=== PATIENT | male | born 1950 | race Caucasian/White ===

== ENCOUNTER 2016-06-29 01:38 | Observation (INO) | payer OTHER ==
[~2016-06-29] VITALS: Ht 185.4 cm; Wt 91.6 kg
[2016-06-29] VITALS (7 sets, daily range): BP systolic 133–142; BP diastolic 50–71
--- NOTE | 2016-06-29 01:38 | NUR ---
PT NICKO BLS. TAKEN TO BED 3
--- NOTE | 2016-06-29 01:38 | NUR ---
BIBA C/O S/P FALL POSSIBLE SYNCOPE BUT NO LOC, CONTUSION ON HIS LEFT FRONTAL HEAD, WITH RASHES ON HID HEAD FOR A MONTH , PATIENT ALERT AWAKE ORIENTED
--- NOTE | 2016-06-29 01:57 | NUR ---
Dr. Main evaluating patient at bedside.
--- NOTE | 2016-06-29 02:13 | NUR ---
PT TAKEN TO CT
--- NOTE | 2016-06-29 02:28 | NUR ---
PT RETURN FROM CT
[2016-06-29 02:41] LABS: BASOPHILS # (AUTO) 0.1 K/uL (0.00-0.22); BASOPHILS % (AUTO) 1.1 % (0.0-2.0); EOSINOPHILS # (AUTO) 0.2 K/uL (0-0.4); EOSINOPHILS % (AUTO) 1.5 % (0.0-4.0); HEMATOCRIT 33.3 % (36-52); HEMOGLOBIN 10.9 g/dL (12.0-18.0); LYMPHOCYTES # (AUTO) 1.3 K/uL (2.0-11.5); MEAN CORPUSCULAR HEMOGLOBIN 32 pg (27-31); MEAN CORPUSCULAR HGB CONC 33 g/dL (33-37); MEAN CORPUSCULAR VOLUME 97 fL (80-94); MONOCYTES # (AUTO) 1.6 K/uL (0.8-1.0); MONOCYTES % (AUTO) 13.1 % (1.7-9.3); NEUTROPHILS % (AUTO) 73.3 % (42.2-75.2); PLATELET COUNT (AUTO) 191 K/uL (140-450); RED BLOOD CELL COUNT(AUTO) 3.42 MIL/uL (4.20-6.10); RED CELL DISTRIBUTION WIDTH 12.5 % (11.6-13.7)
[2016-06-29 02:44] LABS: WHITE BLOOD COUNT (AUTO) 12.2 K/uL (4.8-10.8)
[2016-06-29 02:56] LABS: INR 1.2 (0.8-1.2); PARTIAL THROMBOPLASTIN TIME 28.5 secs (22-35.6); POTASSIUM 3.7 mmol/L (3.5-5.1); PROTHROMBIN TIME 11.9 secs (10.8-13.4)
[2016-06-29 02:57] LABS: ANION GAP 12.7 (8-16); CALCIUM 8.5 mg/dL (8.5-10.1); CREATININE 1.1 mg/dL (0.6-1.3)
[2016-06-29 03:00] LABS: ALBUMIN 3.4 g/dL (3.4-5.0); TOTAL BILIRUBIN 0.8 mg/dL (0.0-1.0); TOTAL PROTEIN, SERUM 7.3 g/dL (6.4-8.2)
[2016-06-29] MEDS ORDERED: ASPIRIN 81 MG TAB.CHEW PO ONE (03:20)
[2016-06-29] MEDS ORDERED: METOPROLOL 25 MG TAB PO ONE (03:20)
--- NOTE | 2016-06-29 04:30 | NUR ---
Patient will be admitted to care of DR KIDD. Admited to ICU 3 . Will go to room ICU 3. Belongings list completed. Report to IHSAN REES.
--- NOTE | 2016-06-29 04:45 | NUR ---
RECEIVED PT FROM ER VIA GURNEY ACCOMPANIED BY EMT AND RN. PT ABLE TO AMBULATE TO BED. INITIAL ASSESSMENT COMPLETED. PT IS ALERT, AWAKE, ORIENTED X4. PT ATTACHED TO MAITRE D', PULSE OXIMETER. ABRASIONS NOTED ON THE NOSE BRIDEGE AND OUTER CANTUS OF LEFT EYE, CHEEK BONE, BRUISE ON THE FOREHEAD. PT HAS CHRONIC RASH ON THE HEAD. IV ACCESS 22G LEFT HAND SALINE LOCK , PATENT, INTACT AT THIS TIME. BED IN LOW POSITION, SAFETY MEASURE ENSURE. PT'S SISTER AT BEDSIDE SAID SHE WILL COME BACK TO GET THE HOME MEDS. WILL CONTINUE TO MONITOR
[2016-06-29] MEDS ORDERED: HYDROcodone/APAP 5/325 MG 1 TAB TAB PO PRN (05:30)
[2016-06-29] MEDS ORDERED: ACETAMINOPHEN 325 MG TAB PO PRN (05:30)
--- NOTE | 2016-06-29 06:30 | NUR ---
REPORT GIVEN TO NEGRITA TREVIZO FOR CONTINUITY OF CARE. VSS UPON TRANSFER, NO SIGNS OF DISTRESS, NO SOB NOTED.
--- NOTE | 2016-06-29 06:46 | NUR ---
RECEIVED PT FROM ICU.PLACED ON BED.ORIENTED TO ROOM.CALL SYSTEM EXPLAINED AND IN REACH.TELE.APPLIED AND SHOWING SR.PT IS AWAKE,ALERT AND ORIENTED.RESP.UNLABORED IN RA.VS STABLE T=98.2,RR=20,TX=70,UY=380/65,O2 SAT IN RA=98%.HAS BRUISES ON FACE AND FORE HEAD AND ABRASION ON NOSE D/T FALL.PT HAS F/C AT HOME AND CHANGED IN ER.NO C/O PAIN AT THIS TIME.
--- NOTE | 2016-06-29 07:22 | NUR ---
RECEIVED REPORT FROM NEGRITA TREVIZO. PT IS AAOX4. PT IS ON ROOM AIR. DENIES PAIN AT THIS TIME. IV TO LEFT HAND #22 PATENT AND INTACT. BRUISES NOTED TO FACE WITH ABRASION TO NOSE. SKIN IS OTHERWISE INTACT. CHRISTY CATHETER IN PLACE DRAINING TO GRAVITY DRAINAGE BAG. SAFETY PRECAUTIONS IN PLACE WITH BED IN LOW POSITION AND SIDE RAILS UP X2. CALL LIGHT WITHIN REACH. WILL CONTINUE TO MONITOR.
--- NOTE | 2016-06-29 07:23 | NUR ---
PATIENT HAS BEEN SCREENED AND CATEGORIZED MODERATE NUTRITION RISK. PATIENT WILL BE SEEN WITHIN 3-5 DAYS OF ADMISSION. 07/01/16-07/03/16 DAVONTE METZ MS, RDN
[2016-06-29] MEDS ORDERED: AMLO5TAB PO (07:26)
[2016-06-29] MEDS ORDERED: METF1000 PO (07:29)
[2016-06-29] MEDS ORDERED: METO25TA PO (07:31)
[2016-06-29] MEDS ORDERED: VAS10 PO (07:31)
[2016-06-29] MEDS ORDERED: ASPI81CT89 PO (07:32)
[2016-06-29] MEDS ORDERED: ATOR20TA PO (07:34)
[2016-06-29] MEDS ORDERED: TAMS0.4C96 BC (07:36)
[2016-06-29] MEDS ORDERED: DICL-388 PO (07:37)
[2016-06-29] MEDS: ENOXAPARIN 40 MG/0.4 ML SYR SUBQ SCH (08:03)
--- NOTE | 2016-06-29 08:03 | NUR ---
PT TOLERATED MEDS WELL.
[2016-06-29] MEDS ORDERED: PNEUMOCOCCAL VACCINE 23 MCG/0.5 ML VIAL IMVAC SCH (09:00)
[2016-06-29] MEDS ORDERED: ASPIRIN 325 MG TABEC PO SCH (09:00)
[2016-06-29] MEDS ORDERED: ECOTRIN 81 MG TABEC PO SCH (09:00)
--- NOTE | 2016-06-29 09:24 | NUR ---
DR. KIDD IN TO SEE PT. WILL FOLLOW UP ON ORDERS.
[2016-06-29] MEDS: ECOTRIN 81 MG TABEC PO SCH (09:26)
--- NOTE | 2016-06-29 11:06 | NUR ---
DR. Trinity BIGGS IN TO SEE PT. WILL FOLLOW UP ON ORDERS.
--- NOTE | 2016-06-29 11:28 | NUR ---
COLLECTED URINE SPECIMEN AND SENT TO LAB.
[2016-06-29 12:31] LABS: AMPHETAMINE, URINE NEG. ng/ml (NEG <=1000); BARBITURATE, URINE NEG. ng/ml (NEG <=200); BENZODIAZEPINE, URINE NEG. ng/mL (NEG <=200); CANNABINOID, URINE NEG. ng/mL (NEG <=50); COCAINE, URINE NEG. ng/mL (NEG <=300); OPIATE, URINE NEG. ng/mL (NEG <=2000); PHENCYCLIDINE SCREEN,URINE NEG. ng/mL (NEG <=25)
--- NOTE | 2016-06-29 13:48 | NUR ---
FAMILY PRESENT AT BEDSIDE.
--- NOTE | 2016-06-29 15:00 | NUR ---
CHECKED ON PT. RESTING AT THIS TIME, AROUSABLE. CALL LIGHT WITHIN REACH.
--- NOTE | 2016-06-29 15:56 | NUR ---
DR. KIDD IN TO SEE PT. WILL FOLLOW UP ON ORDERS.
--- NOTE | 2016-06-29 18:23 | NUR ---
CHECKED ON PT. EATING DINNER AT THIS WITH NO ISSUES. CALL LIGHT WITHIN REACH. WILL CONTINUE TO MONITOR.
--- NOTE | 2016-06-29 19:18 | NUR ---
ENDORSED CARE TO NEGRITA JARAMILLO. PT IN STABLE CONDITION.
--- NOTE | 2016-06-29 19:30 | NUR ---
AWAKEN PT BRIEFLY FOR ASSESSMENT,AWAKE,ALERT AND ORIENTED X4. NO C/O PAIN OR RESPIRATORY DISTRESS. FAMILY AT THE BEDSIDE. NOTED BRUISES ON THE FACE,STATED THAT HE FELL. INSTRUCTED TO CALL IF NEEDED ASSISTANCE, CALL LIGHT WITHIN REACH, TELEPHONE AT THE BEDSIDE.
[2016-06-29] MEDS: ATORVASTATIN 20 MG TAB PO SCH (20:24)
[2016-06-29] MEDS: METOPROLOL 25 MG TAB PO SCH (20:25)
--- NOTE | 2016-06-29 20:30 | NUR ---
PT ASKED ARE YOU GIVING ME MY METFORMIN,EXPLAINED TO PT THAT THERE IS NO ORDER BUT WILL CALL THE DOCTOR.
--- NOTE | 2016-06-29 20:35 | NUR ---
DR. WATERS ANSWERING FOR DR KIDD NOTIFIED REGARDING PT BEING DIABETIC. NEW ORDERS RECEIVED.
[2016-06-29] MEDS ORDERED: DEXTROSE 50% 50 ML SYR IVP PRN (20:45)
[2016-06-29] MEDS: BLOOD GLUCOSE MONITORING 1 DEV DEV FS SCH (21:27)
[2016-06-29] MEDS ORDERED: metFORMIN 500 MG TAB PO SCH (21:30)
[2016-06-29] MEDS: INSULIN LISPRO SLIDING SCALE 100 UNITS/ML VIAL SUBQ PRN (21:35)
--- NOTE | 2016-06-29 21:35 | NUR ---
BS 455 COVERED WITH HUMALOG 10 UNITS WITH MD STATING FOLLOW THE PROTOCOL AND SNACK GIVEN.
[2016-06-30] VITALS: BP_SYST 149
--- NOTE | 2016-06-30 | NUR ---
AWAKEN FOR V/S NO C/O PAIN OR RESPIRATORY DISTRESS. STATED FEELS OK.
[2016-06-30 04:00] VITALS: BP 143/51
--- NOTE | 2016-06-30 04:00 | NUR ---
SLEEPING QUIETLY,V/S TAKEN,OFFERS NO COMPLAINS.
--- NOTE | 2016-06-30 06:00 | NUR ---
RESTING QUIETLY, NO DISTRESS NOTED.
[2016-06-30] MEDS: BLOOD GLUCOSE MONITORING 1 DEV DEV FS SCH ×4 (06:51→21:17)
--- NOTE | 2016-06-30 06:51 | NUR ---
BS 229 COVERED WITH 4 UNITS OF HUMALOG INSULIN.
[2016-06-30] MEDS: INSULIN LISPRO SLIDING SCALE 100 UNITS/ML VIAL SUBQ PRN ×4 (06:53→20:20)
--- NOTE | 2016-06-30 07:30 | NUR ---
REPORT GIVEN TO AM NURSE LEAVITT.
--- NOTE | 2016-06-30 07:32 | NUR ---
RECEIVED REPORT FROM NEGRITA JARAMILLO. PT RESTING IN BED, A/OX4, IV IS ON THE LEFT HAND, SL, PATENT AND INTACT, FLUSHING WELL, PT HAS BRUISING ON LEFT SIDE OF HIS FACE FROM HX OF FALL, PT HAS CHRISTY CATHETER IN PLACE, CLEAR, DARK YELLOW URINE, NO S/S OF RESPIRATORY DISTRESS OR DISCOMFORT NOTED, CALL LIGHT IS WITHIN REACH, WILL CONTINUE TO MONITOR.
[2016-06-30 08:00] VITALS: BP 147/65
[2016-06-30] MEDS: metFORMIN 500 MG TAB PO SCH ×2 (08:12→17:41)
[2016-06-30] MEDS: LOSARTAN 25 MG TAB PO SCH (08:12)
[2016-06-30] MEDS: ECOTRIN 81 MG TABEC PO SCH (08:13)
[2016-06-30] MEDS: METOPROLOL 25 MG TAB PO SCH ×2 (08:13→20:17)
[2016-06-30] MEDS: ENOXAPARIN 40 MG/0.4 ML SYR SUBQ SCH (08:21)
--- NOTE | 2016-06-30 09:30 | NUR ---
PT RESTING IN BED, WATCHING TV, SISTER IS AT BEDSIDE.
[2016-06-30 12:00] VITALS: BP 133/62
--- NOTE | 2016-06-30 12:30 | NUR ---
DR. KIDD IN PT ROOM, SPEAKING TO PT AND PT SISTER.
--- NOTE | 2016-06-30 14:00 | NUR ---
DR. KIDD AUTHORIZED FOR PT TO SHOWER, ASSISTED PT TO SHOWER ROOM.
[2016-06-30 16:00] VITALS: BP 139/66
--- NOTE | 2016-06-30 16:40 | NUR ---
DR. BIGGS IN PT ROOM SPEAKING TO PT AND PT SISTER.
--- NOTE | 2016-06-30 19:35 | NUR ---
RECEIVED PT SLEEPING, EASILY AROUSABLE, AAOX4, VITAL SIGNS STABLE, DENIES ANY PAIN AND DIZZINESS, CHRISTY CATHETER IN PLACE WITH YELLOW OUTPUT, POC DISCUSSED AND FOR TX TO [facility] ACTIVITIES ATTENDANT TOMORROW, INSTRUCTED NPO AFTER MIDNIGHT, SAFETY MEASURES IN PLACE, CALL LIGHT WITHIN REACH.
--- NOTE | 2016-06-30 19:35 | NUR ---
ENDORSED PT TO NEGRITA GALARZA. FOR CONTINUITY OF CARE, PT STABLE AT THIS TIME.
[2016-06-30 20:00] VITALS: BP 148/65
[2016-06-30] MEDS: ATORVASTATIN 20 MG TAB PO SCH (20:16)
--- NOTE | 2016-06-30 20:30 | NUR ---
BLOOD SUGAR CHECKED WITH 190 RESULT, COVERAGE GIVEN, DUE PO MEDICATIONS TAKEN, ALL NEEDS ATTENDED.
--- NOTE | 2016-06-30 22:00 | NUR ---
ROUNDED ON PT, SLEEPING, NO SIGNS OF DISTRESS, MONITORED CLOSELY.
--- NOTE | 2016-06-30 23:11 | NUR ---
WITH ORAL TEMP OF 101.0, TYLENOL PO GIVEN AND COOLING MEASURES STARTED, MONITORED CLOSELY.
[2016-07-01 00:15] VITALS: BP 150/72
--- NOTE | 2016-07-01 00:15 | NUR ---
VITAL SIGNS TAKEN, BP SLIGHTLY ELEVATED, DENIES ANY PAIN, NO SOB NOTED, TEMP RECHECKED WITH 99.7, NPO EXCEPT MEDS, CONTINUE TO MONITOR CLOSELY.
[2016-07-01 04:00] VITALS: BP 144/71
--- NOTE | 2016-07-01 04:00 | NUR ---
PT SLEEPING, EASILY AROUSABLE, VITAL SIGNS STABLE, AFEBRILE, DENIES ANY PAIN, MONITORED CLOSELY.
[2016-07-01 05:29] LABS: HEMATOCRIT 35.9 % (36-52); HEMOGLOBIN 11.9 g/dL (12.0-18.0); MEAN CORPUSCULAR HEMOGLOBIN 32 pg (27-31); MEAN CORPUSCULAR HGB CONC 33 g/dL (33-37); MEAN CORPUSCULAR VOLUME 96 fL (80-94); PLATELET COUNT (AUTO) 205 K/uL (140-450); RED BLOOD CELL COUNT(AUTO) 3.74 MIL/uL (4.20-6.10); RED CELL DISTRIBUTION WIDTH 12.6 % (11.6-13.7); WHITE BLOOD COUNT (AUTO) 10.9 K/uL (4.8-10.8)
--- NOTE | 2016-07-01 05:35 | NUR ---
TRANSFER ACKNOWLEDGEMENT FORM SIGNED BY PT, BLOOD SUGAR CHECKED WITH 231 RESULT, WILL GIVE INSULIN COVERAGE, MAINTAIN ON NPO EXCEPT MEDS, MONITORED CLOSELY.
[2016-07-01] MEDS: INSULIN LISPRO SLIDING SCALE 100 UNITS/ML VIAL SUBQ PRN (06:29)
--- NOTE | 2016-07-01 06:30 | NUR ---
HUMALOG COVERAGE 4 UNITS GIVEN SUB-Q, NO SIGNS OF DISTRESS, MONITORED CLOSELY.
--- NOTE | 2016-07-01 07:30 | NUR ---
PT SLEEPING, NO DISTRESS NOTED, REPORT GIVEN TO DUB ROOM ENGINEER JOWIE.
[2016-07-01] MEDS: BLOOD GLUCOSE MONITORING 1 DEV DEV FS SCH (07:39)
[2016-07-01 07:54] LABS: NEUTROPHILS % (MANUAL) 67 (43-65)
[2016-07-01 07:55] LABS: BAND % (MANUAL) 1 % (0-8); EOSINOPHILS % (MANUAL) 2 % (0-4); LYMPHOCYTES % (MANUAL) 19 % (20-46); MONOCYTES % (MANUAL) 11 % (5-12); PLATELET ESTIMATE ADEQUATE
[2016-07-01 08:00] VITALS: BP 139/90
--- NOTE | 2016-07-01 08:12 | NUR ---
RECEIVED REPORT FROM CHARGE NURSE, PT RESTING IN BED, A/OX4, IV ON LT HAND, PATENT, INTACT, FLUSHING WELL, SKIN IS INTACT, BRUISING LEFT SIDE OF FACE FROM HX OF FALL, CHRISTY CATHETER IN PLACE, NO S/S OF RESPIRATORY DISTRESS OR DISCOMFORT NOTED, DISCUSSED PLAN OF CARE WITH PT, PT VERBALIZED UNDERSTANDING, CALL LIGHT IS WITHIN REACH, WILL CONTINUE TO MONITOR.
[2016-07-01] MEDS: ECOTRIN 81 MG TABEC PO SCH (09:02)
[2016-07-01] MEDS: metFORMIN 500 MG TAB PO SCH (09:02)
[2016-07-01] MEDS: LOSARTAN 25 MG TAB PO SCH (09:02)
[2016-07-01] MEDS: METOPROLOL 25 MG TAB PO SCH (09:03)
[2016-07-01] MEDS: ENOXAPARIN 40 MG/0.4 ML SYR SUBQ SCH (09:07)
--- NOTE | 2016-07-01 09:38 | NUR ---
TALHA STEPHENSON SPOKE WITH TALHA CROCKER OF [facility] PH# [phone] EXT [id number], FOR [facility] AUTH# [id number] AND AMBULANCE AUTH# [id number]. SPOKE WITH SHAILESH OF [facility] PH# [phone] AND CONFIRMED THAT PATIENT IS SCHEDULED FOR PROCEDURE AT 2:30PM TODAY AND HAS TO BE AT THEIR [facility] AT 11:30AM. SENT FACESHEET, CONSULTATION REPORT AND LAB REPORT TO [facility] ATTN: SHAILESH FAX# [phone]. SPOKE WITH PETROS OF [facility] PH# [phone] TO SET UP PATIENT TRANSPORT CONTRACTS ANALYST TIME AT 10:30AM FROM [place] TODAY [facility] AMBULANCE GOING TO [facility] AND WILL HAVE TO PASS BY THE ER FIRST. CHARGE NURSE RADHA LANDAVERDE EXT [phone]
--- NOTE | 2016-07-01 09:45 | NUR ---
CALLED [facility] AT [phone], GAVE REPORT TO NEGRITA FIELDS. INFORMED HER THEY WOULD BE PICKING PT UP FROM [facility] AT 10:30 AM.
--- NOTE | 2016-07-01 11:00 | NUR ---
TRANSPORT HERE TO PICK PT UP AND TRANSFER TO [facility], REPORT GIVEN TO TRANSPORT [facility], DISCHARGE INSTRUCTIONS GIVEN, ID WRIST BAND REMOVED, PT STABLE UPON DISCHARGE.
--- NOTE | 2016-07-01 11:32 | NUR ---
TALHA NOTE PER CHEMISTRY LECTURER KAVYA EXT [phone], REVIEWS SHOULD GO TO [facility]. INITIAL REVIEW SENT TO [facility] FAX# [phone] PH# [phone] ATTN: TALHA CROCKER EXT [id number]
== END 2016-07-01 11:00 | disposition short-term general hospital (02) ==
LOC: MED 01:38 → MIC 03:51 → MTU 06:30
PROVIDERS: ADMIT Hospitalist; ATTEND Hospitalist
DX: I21.4 Non-ST elevation (NSTEMI) myocardial infarction (principal); R55 Syncope and collapse; R79.89 Other specified abnormal findings of blood chemistry; I10 Essential (primary) hypertension; E11.9 Type 2 diabetes mellitus without complications; E78.5 Hyperlipidemia, unspecified
CPT/HCPCS: 36415; 51702; 70450; 71010; 80053; 80305; 82948; 84484; 85025; 85610; 85730; 87040; 87081; 87186; 93005; 93307; 96372; 99285; G0378; J1650

== ENCOUNTER 2018-12-02 13:07 | Emergency (ER) | payer OTHER ==
[~2018-12-02] VITALS: Ht 188 cm; Wt 101.6 kg
[~2018-12-02 13:07] MED LIST: AMLO5TAB PO; ASPI-1718 PO; ATOR20TA PO; DICL-388 PO; ENAL-197 PO; METF1000 PO; METO25TA PO; TAMS0.4C96 BC
[2018-12-02 13:31] VITALS: BP 137/114
--- NOTE | 2018-12-02 14:00 | NUR ---
IRMA CONNELLY AT BEDSIDE
--- NOTE | 2018-12-02 14:23 | NUR ---
PT TAKEN TO US.
[2018-12-02 14:29] LABS: APPEARANCE,URINE CLEAR (CLEAR); BILIRUBIN,URINE NEGATIVE (NEGATIVE); BLOOD, URINE TRACE-I (NEGATIVE); COLOR,URINE YELLOW (YELLOW); LEUKOCYTE ESTERASE ,URINE 3+ (NEGATIVE); NITRITE, URINE POSITIVE (NEGATIVE); UGLUCOSE NEGATIVE (NEGATIVE)
--- NOTE | 2018-12-02 15:02 | NUR ---
PATIENT AMBULATED TO ER BED 10
[2018-12-02 15:04] LABS: RBC,URINE 0-5 /HPF (0-5)
[2018-12-02 15:05] LABS: WBC,URINE >25 (MANY) /HPF (0-5)
--- NOTE | 2018-12-02 15:36 | NUR ---
68/M PRESENTS TO ED, C/O L TESTICULAR PAIN, SINCE LAST NIGHT. L TESTICLE TENDER TO TOUCH, NO ERYTHEMA, NO PENILE DISCHARGE. PT DENIES DYSURIA. PT AWAKE AND ALERT, SKIN NORMAL WARM AND DRY, RR EVEN AND UNLABORED HX DM, HTN RX INSULIN; OTC TYLENOL WITHOUT RELIEF.
[2018-12-02] MEDS ORDERED: CIPROFLOXACIN 250 MG TAB PO ONE (16:10)
[2018-12-02] MEDS ORDERED: IBUPROFEN 600 MG TAB PO ONE (16:10)
[2018-12-02 16:42] VITALS: BP 122/94
--- NOTE | 2018-12-02 16:42 | NUR ---
Patient discharged with v/s stable. Written and verbal after care instructions given and explained. Patient alert, oriented and verbalized understanding of instructions. Ambulatory with steady gait. All questions addressed prior to discharge. ID band removed. Patient advised to follow up with PMD. Rx of MOTRIN AND CIPROFLOXACIN given. Patient educated on indication of medication including possible reaction and side effects. Opportunity to ask questions provided and answered.
== END 2018-12-02 16:42 | disposition home or self-care (01) ==
LOC: MED 13:07
DX: N50.89 Other specified disorders of the male genital organs (principal); N39.0 Urinary tract infection, site not specified; E11.9 Type 2 diabetes mellitus without complications; I10 Essential (primary) hypertension; Z79.899 Other long term (current) drug therapy; Z79.82 Long term (current) use of aspirin; Z79.1 Long term (current) use of non-steroidal anti-inflammatories (NSAID)
CPT/HCPCS: 76870; 81001; 87086; 87186; 99284; Q0092

== ENCOUNTER 2020-09-08 15:43 | Emergency (ER) | payer OTHER ==
[~2020-09-08] VITALS: Ht 188 cm; Wt 102.1 kg
[~2020-09-08 15:43] MED LIST changes: -ASPI-1718 PO; +ASPI-1822 PO; +DICL-342 PO; -DICL-388 PO
[2020-09-08 15:53] VITALS: BP 142/65
--- NOTE | 2020-09-08 15:53 | NUR ---
PATIENT AMBULATED TO ER BED 07
--- NOTE | 2020-09-08 16:03 | NUR ---
IRMA LIEBERMAN AT BEDSIDE EXAMINING PATIENT
--- NOTE | 2020-09-08 16:10 | NUR ---
ASSUMED CARE OF A 70/M FROM TRIAGE WITH CELLULITIS TO LEFT TOE. PT REPORTS FIRST NOTICING THIS APPROX 3 DAYS AGO. TOE APPEARS RED, WARM, WITH MINIMAL DRAINAGE. CMS INTACT.
[2020-09-08] MEDS ORDERED: CLINDAMYCIN 600 MG in DEXTROSE 5% 50 ML IV ONE (16:15)
[2020-09-08] MEDS ORDERED: MORPHINE SULFATE 2 MG/ML SYR IVP ONE (16:15)
[2020-09-08] MEDS ORDERED: CLINDAMYCIN 600 MG/4 ML VIAL ONE (16:19)
[2020-09-08 16:51] LABS: BASOPHILS % (AUTO) 0.4 % (0.0-2.0); EOSINOPHILS # (AUTO) 0.1 K/uL (0-0.4); EOSINOPHILS % (AUTO) 1.1 % (0.0-4.0); HEMATOCRIT 35.1 % (36-52); HEMOGLOBIN 11.9 g/dL (12.0-18.0); LYMPHOCYTES # (AUTO) 1.2 K/uL (2.0-11.5); LYMPHOCYTES % (AUTO) 11.1 % (20.5-51.1); MEAN CORPUSCULAR HEMOGLOBIN 33 pg (27-31); MEAN CORPUSCULAR HGB CONC 34 g/dL (33-37); MEAN CORPUSCULAR VOLUME 97.7 fL (80-94); MONOCYTES # (AUTO) 1.2 K/uL (0.8-1.0); MONOCYTES % (AUTO) 10.8 % (1.7-9.3); NEUTROPHILS # (AUTO) 8.5 K/uL (1.8-7.7); NEUTROPHILS % (AUTO) 76.6 % (42.2-75.2); PLATELET COUNT (AUTO) 187 K/uL (140-450); RED BLOOD CELL COUNT(AUTO) 3.59 MIL/uL (4.20-6.10); RED CELL DISTRIBUTION WIDTH 13.7 % (11.6-13.7); WHITE BLOOD COUNT (AUTO) 11.1 K/uL (4.8-10.8)
[2020-09-08 17:10] LABS: ANION GAP 16.4 (8-16); CARBON DIOXIDE 24.2 mmol/L (21-32); CREATININE 1.1 mg/dL (0.6-1.3); POTASSIUM 3.6 mmol/L (3.5-5.1)
[2020-09-08] MEDS ORDERED: ACET-10509 PO (17:10)
[2020-09-08] MEDS ORDERED: SULF-59 PO (17:10)
[2020-09-08] MEDS ORDERED: CLIN300C2 PO (17:10)
[2020-09-08 17:39] LABS: ALBUMIN 3.8 g/dL (3.4-5.0); TOTAL BILIRUBIN 0.8 mg/dL (0.0-1.0)
[2020-09-08] MEDS ORDERED: BACITRACIN OINT 500 UNITS/GM PKT TP ONE (17:55)
--- NOTE | 2020-09-08 18:40 | NUR ---
IV removed, catheter intact and site benign. Applied folded 4x4 gauze and tape to stop bleeding.
[2020-09-08 18:45] VITALS: BP 142/65
--- NOTE | 2020-09-08 18:45 | NUR ---
Patient discharged with v/s stable. Written and verbal after care instructions given wound infection and cellulitis and explained. Patient alert, oriented and verbalized understanding of instructions. Ambulatory with steady gait. All questions addressed prior to discharge. ID band removed. Patient advised to follow up with PMD. Rx of clindmycin 300mg po tid for 7days, acetaminophen 500mg po q4-6h prn, and bactrim po bid for 10days given. Patient educated on indication of medication including possible reaction and side effects. Opportunity to ask questions provided and answered.
[2020-09-09] MEDS ORDERED: INSU10SU2 SC (17:21)
== END 2020-09-08 18:45 | disposition home or self-care (01) ==
LOC: MED 15:43
DX: S90.122A Contusion of left lesser toe(s) without damage to nail, initial encounter (principal); L03.032 Cellulitis of left toe; E11.9 Type 2 diabetes mellitus without complications; I10 Essential (primary) hypertension; Z79.84 Long term (current) use of oral hypoglycemic drugs; Z79.899 Other long term (current) drug therapy; Z79.82 Long term (current) use of aspirin; W22.03XA Walked into furniture, initial encounter; Y93.89 Activity, other specified; Y92.89 Other specified places as the place of occurrence of the external cause; Y99.8 Other external cause status
CPT/HCPCS: 36415; 73630; 80053; 85025; 96365; 96375; 99284; J2270; J3490

== ENCOUNTER 2020-09-09 16:52 | Emergency (ER) | payer OTHER ==
[~2020-09-09] VITALS: Ht 188 cm; Wt 102.1 kg
[~2020-09-09 16:52] MED LIST changes: +ACET-10509 PO; +CLIN300C2 PO; +SULF-59 PO
[2020-09-09 16:59] VITALS: BP 151/73
[2020-09-09] MEDS ORDERED: INSU10SU2 SC (17:21)
[2020-09-09] MEDS ORDERED: INSULIN NPH HUM/REG INSULIN HM 100 UNIT/ML 10 ML VIAL SUBQ ONE (17:25)
[2020-09-09 17:38] VITALS: BP 151/73
== END 2020-09-09 17:35 | disposition home or self-care (01) ==
LOC: MED 16:52
DX: E11.65 Type 2 diabetes mellitus with hyperglycemia (principal); I10 Essential (primary) hypertension; Z76.0 Encounter for issue of repeat prescription; Z79.82 Long term (current) use of aspirin; Z79.899 Other long term (current) drug therapy
CPT/HCPCS: 96372; 99283; J1815

== ENCOUNTER 2020-11-06 11:38 | Emergency (ER) | payer OTHER ==
[~2020-11-06] VITALS: Ht 185.4 cm; Wt 99.8 kg
[~2020-11-06 11:38] MED LIST changes: +INSU10SU2 SC
--- NOTE | 2020-11-06 11:57 | NUR ---
DR. GRAY AT PT BEDSIDE FOR FURTHER EVALUATION.
--- NOTE | 2020-11-06 11:57 | NUR ---
Pt ambulated to bed 06.
[2020-11-06 12:00] VITALS: BP 154/57
--- NOTE | 2020-11-06 12:00 | NUR ---
Note annmarie in EDM - 11/06/20 at 1212 by [facility] 70 Y/O MALE C/O LEFT FOOT PAIN 09/30 DESCRIBES ACHING X3DAYS RADIATES TO LEFT ANKLE. PT STATES HE ACCIDENTALY CUT HIMSELF WHEN BUMPING INTO A SIDE OF THE BED [id number] AGO. PT STATES HE WAS SEEN BY ERMD AND PRESCRIBED AB WITH NO RELIEF OF SYMPTOMS. DENIES N/V, DENIES FEVER/CHILLS. PMH: DM, HTN, HLD NKA
[2020-11-06] MEDS ORDERED: CLINDAMYCIN 150 MG CAP PO ONE (12:10)
[2020-11-06] MEDS ORDERED: ACETAMINOPHEN EXTRA STRENGTH 500 MG TAB PO ONE (12:10)
--- NOTE | 2020-11-06 12:12 | NUR ---
70 Y/O MALE C/O LEFT FOOT PAIN 09/30 DESCRIBES ACHING X3DAYS RADIATES TO LEFT ANKLE. PT STATES HE ACCIDENTALY CUT HIMSELF WHEN BUMPING INTO A SIDE OF THE BED [id number] AGO. PT STATES HE WAS SEEN BY ERMD AND PRESCRIBED AB WITH NO RELIEF OF SYMPTOMS. DENIES N/V, DENIES FEVER/CHILLS. PMH: DM, HTN, HLD NKA
--- NOTE | 2020-11-06 12:24 | NUR ---
BELT KNIFE FEEDER AT PT BEDSIDE.
--- NOTE | 2020-11-06 12:42 | NUR ---
DR. GRAY WITH PT FOR RE EVALUATION.
[2020-11-06] MEDS ORDERED: CLIN-178 PO (12:49)
[2020-11-06 12:56] VITALS: BP 146/61
--- NOTE | 2020-11-06 12:57 | NUR ---
Patient discharged with v/s stable. Written and verbal after care instructions given DIABETES, FOOT CARE, AND CELLULITIS and explained. Patient alert, oriented and verbalized understanding of instructions. Ambulatory with steady gait. All questions addressed prior to discharge. ID band removed. Patient advised to follow up with PMD. Rx of CLINDAMYCIN 300MG PO TID given. Patient educated on indication of medication including possible reaction and side effects. Opportunity to ask questions provided and answered.
== END 2020-11-06 12:57 | disposition home or self-care (01) ==
LOC: MED 11:38
DX: L03.116 Cellulitis of left lower limb (principal); E11.621 Type 2 diabetes mellitus with foot ulcer; I10 Essential (primary) hypertension; Z79.899 Other long term (current) drug therapy; Z79.4 Long term (current) use of insulin; Z79.82 Long term (current) use of aspirin
CPT/HCPCS: 29515; 73630; 99283

== ENCOUNTER 2020-11-09 11:38 | Emergency (ER) | payer OTHER ==
[~2020-11-09] VITALS: Ht 185.4 cm; Wt 99.3 kg
[~2020-11-09 11:38] MED LIST changes: -CLIN300C2 PO; +CLIN300C52 PO; -SULF-59 PO
[2020-11-09 12:05] VITALS: BP 136/67
--- NOTE | 2020-11-09 12:16 | NUR ---
PATIENT PRESENTS TO ED WITH LLE 5TH DIGIT CELLULITIS/WOUND . PT STATES HE WAS SEEN HERE ABOUT 2 DAYS AGO AND PRESCRIBED A 10 DAY ANTIBIOTIC REGIMEN, WAS TOLD TO FOLLOW UP IN 2 DAYS. WOUND HAS NO DRAINAGE, IS REDDENED WITH A FOUL SMELL. PATIENT REPORTS PAIN IS MILD . DENIES N/V/D; AAOX4 WITH EVEN AND STEADY GAIT; LUNGS CLEAR BL; HR EVEN AND REGULAR; PT DENIES ANY FEVER, CP, SOB, OR COUGH AT THIS TIME; PATIENT STATES PAIN OF 5/10 AT THIS TIME; VSS; PATIENT POSITIONED FOR COMFORT; HOB ELEVATED; BEDRAILS UP X2; BED DOWN. ER MD MADE AWARE OF PT STATUS.
--- NOTE | 2020-11-09 13:51 | NUR ---
Patient discharged with v/s stable. Written and verbal after care instructions given and explained. Patient verbalized understanding. Ambulatory with steady gait. All questions addressed prior to discharge. Advised to follow up with PMD.
== END 2020-11-09 13:51 | disposition home or self-care (01) ==
LOC: MED 11:38
DX: L03.116 Cellulitis of left lower limb (principal); E11.9 Type 2 diabetes mellitus without complications; I10 Essential (primary) hypertension; Z79.4 Long term (current) use of insulin; Z79.82 Long term (current) use of aspirin
CPT/HCPCS: 99283

== ENCOUNTER 2021-10-12 15:53 | Emergency (ER) | payer MEDICARE, OTHER ==
[~2021-10-12] VITALS: Ht 185.4 cm; Wt 98.9 kg
[~2021-10-12 15:53] MED LIST changes: +METF-1274 PO; -METF1000 PO
[2021-10-12 15:55] VITALS: BP 160/90
[2021-10-12 16:22] LABS: BASOPHILS % (AUTO) 0.7 % (0.0-2.0); EOSINOPHILS % (AUTO) 0.7 % (0.0-4.0); HEMATOCRIT 31.6 % (36-52); HEMOGLOBIN 10.7 g/dL (12.0-18.0); LYMPHOCYTES # (AUTO) 0.5 K/uL (2.0-11.5); LYMPHOCYTES % (AUTO) 6.9 % (20.5-51.1); MEAN CORPUSCULAR HEMOGLOBIN 33 pg (27-31); MEAN CORPUSCULAR HGB CONC 34 g/dL (33-37); MONOCYTES % (AUTO) 15.2 % (1.7-9.3); NEUTROPHILS % (AUTO) 76.5 % (42.2-75.2); PLATELET COUNT (AUTO) 139 K/uL (140-450); RED BLOOD CELL COUNT(AUTO) 3.29 MIL/uL (4.20-6.10); RED CELL DISTRIBUTION WIDTH 14.1 % (11.6-13.7); WHITE BLOOD COUNT (AUTO) 6.6 K/uL (4.8-10.8)
[2021-10-12 16:38] LABS: ALBUMIN 3.8 g/dL (3.4-5.0); ANION GAP 14.5 (8-16); ASPARTATE AMINOTRANSFERASE 19 U/L (15-37); CARBON DIOXIDE 25.3 mmol/L (21-32); CHLORIDE 98 mmol/L (98-107); CREATININE 1.1 mg/dL (0.6-1.3); GFR ARICAN-AMERICAN 85 mL/min (>90); GLUCOSE 296 mg/dL (74-106); MAGNESIUM 1.5 mg/dL (1.8-2.4); POTASSIUM 3.8 mmol/L (3.5-5.1); SODIUM SERUM 134 mmol/L (136-145); TOTAL BILIRUBIN 0.8 mg/dL (0.0-1.0); UREA NITROGEN, BLOOD 18 mg/dL (7-18)
[2021-10-12] MEDS ORDERED: NACL 0.9% 1,000 ML IV ONE (16:45)
[2021-10-12] MEDS ORDERED: MAG SULF 2000 MG/WATER PREMIX 50 ML IV ONE (16:45)
--- NOTE | 2021-10-12 19:58 | NUR ---
ERMD AT BEDSIDE DISCUSSING PT RESULTS
--- NOTE | 2021-10-12 20:01 | NUR ---
REMOVED 22G IV FROM PT'S LEFT HAND AT THIS TIME.
[2021-10-12 20:06] LABS: APPEARANCE,URINE CLEAR (CLEAR); BILIRUBIN,URINE NEGATIVE (NEGATIVE); BLOOD, URINE NEGATIVE (NEGATIVE); LEUKOCYTE ESTERASE ,URINE NEGATIVE (NEGATIVE); NITRITE, URINE NEGATIVE (NEGATIVE); UGLUCOSE 3+ (NEGATIVE)
[2021-10-12 20:08] LABS: COLOR,URINE YELLOW (YELLOW)
[2021-10-12 20:09] VITALS: BP 155/65
--- NOTE | 2021-10-12 20:09 | NUR ---
Patient discharged with v/s stable. Written and verbal after care instructions given and explained. Patient verbalized understanding. Ambulatory with steady gait. All questions addressed prior to discharge. Advised to follow up with PMD. VSS, A/OX4, UNLABORED BREATHING, AMBULATORY, AND CALM DEMEANOR.
== END 2021-10-12 20:09 | disposition home or self-care (01) ==
LOC: MED 15:53
DX: E11.65 Type 2 diabetes mellitus with hyperglycemia (principal); I10 Essential (primary) hypertension; Z79.4 Long term (current) use of insulin; Z79.899 Other long term (current) drug therapy; Z98.890 Other specified postprocedural states
CPT/HCPCS: 36415; 80053; 81003; 83735; 84484; 85025; 93005; 96360; 96361; 99284; J7030

== ENCOUNTER 2022-01-10 11:09 | Emergency (ER) | payer MEDICARE, OTHER ==
[~2022-01-10] VITALS: Ht 185.4 cm; Wt 96.7 kg
[2022-01-10 11:14] VITALS: BP 159/96
--- NOTE | 2022-01-10 11:23 | NUR ---
PT AMB TO BED 11.
--- NOTE | 2022-01-10 12:07 | NUR ---
71M PRESENTS TO ED WITH C/O 10/10 ACHING SCIATICA PAIN X 3DAYS. PT REPORTS INTERMITTENT PAIN TO THE LEFT HIP RADIATING TO LEFT ANKLE, PT TOOK GABAPENTIN AND MOTRIN WITH SOME RELIEF. PT DENIES INJURY OR TRAUMA, PT AMBULATORY UPON ARRIVAL.
[2022-01-10] MEDS ORDERED: MORPHINE SULFATE 4 MG/ML SYR IM ONE (12:50)
--- NOTE | 2022-01-10 13:01 | NUR ---
PLUG MAKING OPERATOR AT BEDSIDE.
[2022-01-10] MEDS ORDERED: IBUP-1842 PO (13:53)
[2022-01-10 14:09] VITALS: BP 136/65
--- NOTE | 2022-01-10 14:10 | NUR ---
Patient discharged with v/s stable. Written and verbal after care instructions ABOUT HIP PAIN AND SCIATICA given and explained. Patient alert, oriented and verbalized understanding of instructions. Ambulatory with steady gait. All questions addressed prior to discharge. ID band removed. Patient advised to follow up with PMD. Rx of IBUPROFEN given. Patient educated on indication of medication including possible reaction and side effects. Opportunity to ask questions provided and answered.
== END 2022-01-10 14:09 | disposition home or self-care (01) ==
LOC: MED 11:09
DX: M25.552 Pain in left hip (principal); I10 Essential (primary) hypertension; E11.9 Type 2 diabetes mellitus without complications; I25.10 Atherosclerotic heart disease of native coronary artery without angina pectoris; Z79.4 Long term (current) use of insulin; Z79.899 Other long term (current) drug therapy
CPT/HCPCS: 73502; 81002; 96372; 99283; J2270; Q0092

== ENCOUNTER 2022-04-15 12:31 | Emergency (ER) | payer MEDICARE, OTHER ==
[~2022-04-15] VITALS: Ht 185.4 cm; Wt 101.6 kg
[~2022-04-15 12:31] MED LIST changes: +IBUP-1842 PO
[2022-04-15 12:34] VITALS: BP 132/69
--- NOTE | 2022-04-15 12:50 | NUR ---
Pt being evaluated by IRMA Harrison in chair B.
--- NOTE | 2022-04-15 13:00 | NUR ---
72M PRESENTS TO ED WITH C/O LEFT FOOT GREAT TOE PAIN X 1 WEEK. PT REPORTS SLIGHT SWELLING AND BLEEDING WITH CLEAR DISCHARGE. PT DENIES PAIN, FEVERS, CHILLS OR TRAUMA/INJURY.
[2022-04-15] MEDS ORDERED: BACITRACIN OINT 500 UNITS/GM PKT TP ONE (13:05)
--- NOTE | 2022-04-15 13:06 | NUR ---
non adherent applied to L big toe
[2022-04-15] MEDS ORDERED: BACTO TP (13:18)
[2022-04-15] MEDS ORDERED: CEPH-588 PO (13:18)
[2022-04-15] MEDS ORDERED: IBUP-2213 PO (13:18)
--- NOTE | 2022-04-15 13:40 | NUR ---
Patient discharged with v/s stable. Written and verbal after care instructions ABOUT DIABETES MELLITUS AND FOOT CARE given and explained. Patient alert, oriented and verbalized understanding of instructions. Ambulatory with steady gait. All questions addressed prior to discharge. ID band removed. Patient advised to follow up with PMD. Rx of KELFEX, BACTROBAN 2%, MOTRIN given. Patient educated on indication of medication including possible reaction and side effects. Opportunity to ask questions provided and answered.
== END 2022-04-15 13:40 | disposition home or self-care (01) ==
LOC: MED 12:31
DX: M79.675 Pain in left toe(s) (principal); E11.621 Type 2 diabetes mellitus with foot ulcer; E78.5 Hyperlipidemia, unspecified; I10 Essential (primary) hypertension; Z79.4 Long term (current) use of insulin; Z79.899 Other long term (current) drug therapy; Z79.82 Long term (current) use of aspirin
CPT/HCPCS: 99282

== ENCOUNTER 2022-04-30 12:47 | Emergency (ER) | payer MEDICARE, OTHER ==
[~2022-04-30] VITALS: Ht 185.4 cm; Wt 103.0 kg
[~2022-04-30 12:47] MED LIST changes: +BACTO TP; +CEPH-588 PO; +IBUP-2213 PO
[2022-04-30 13:04] VITALS: BP 149/108
--- NOTE | 2022-04-30 13:15 | NUR ---
BIB SELF FOR LEFT BIG TOE WOUND CHECK. 0/10 PAIN.
--- NOTE | 2022-04-30 14:26 | NUR ---
BULKY DRESSING APPLIED TO L GREAT TOE + CMS
--- NOTE | 2022-04-30 14:42 | NUR ---
Patient discharged with v/s stable. Written and verbal after care instructions ABOUT CONTUSION given and explained. Patient verbalized understanding. Ambulatory with steady gait. All questions addressed prior to discharge. Advised to follow up with PMD.
== END 2022-04-30 14:42 | disposition home or self-care (01) ==
LOC: MED 12:47
DX: S90.425A Blister (nonthermal), left lesser toe(s), initial encounter (principal); E11.9 Type 2 diabetes mellitus without complications; I10 Essential (primary) hypertension; Z79.4 Long term (current) use of insulin; Z79.899 Other long term (current) drug therapy; X58.XXXA Exposure to other specified factors, initial encounter; Y93.89 Activity, other specified; Y92.89 Other specified places as the place of occurrence of the external cause; Y99.8 Other external cause status
CPT/HCPCS: 82948; 99283